=== PATIENT | male | born 1975 ===

== ENCOUNTER 2019-02-24 10:17 | Inpatient (IN) ==
[2019-02-24] MEDS ORDERED: VANCOMYCIN INJ 1,000 MG in SODIUM CHLORIDE 0.9% 250 ML IV STA (10:40)
[2019-02-24] MEDS ORDERED: ONDANSETRON 4 MG/2 ML VIAL ONE (10:43)
[2019-02-24] MEDS ORDERED: HYDROmorphone 2 MG/1 ML VIAL ONE (10:44)
[2019-02-24] MEDS ORDERED: HYDROmorphone 2 MG/1 ML VIAL IV STA (10:57)
[2019-02-24] MEDS ORDERED: ONDANSETRON 4 MG/2 ML VIAL IV STA (10:57)
[2019-02-24 11:07] LABS: Cholesterol Crystals None Seen /LPF
[2019-02-24 11:40] LABS: Lymphocytes,Synovial Fluid 12 %; Neutrophils,Synovial Fluid 88 %
[2019-02-24] MEDS ORDERED: INSULIN REGULAR 100 UNIT/ML ONE (13:33)
[2019-02-24] MEDS ORDERED: ceFAZolin 1,000 MG VIAL ONE (14:32)
[2019-02-24] MEDS ORDERED: LORATADINE 10 MG TABLET PO PRN (15:21)
[2019-02-24] MEDS ORDERED: GLUCAGON 1 MG VIAL IM PRN (15:27)
[2019-02-24] MEDS ORDERED: ONDANSETRON 4 MG/2 ML VIAL IV PRN (15:27)
[2019-02-24] MEDS ORDERED: DEXTROSE 10% 250 ML BAG IV PRN (15:27)
[2019-02-24] MEDS ORDERED: MAGNESIUM HYDROXIDE SUSP 30 ML UDCUP PO PRN (15:27)
[2019-02-24] MEDS ORDERED: PROPOFOL 200 MG/20 ML VIAL IV ONE (15:34)
[2019-02-24] MEDS ORDERED: fentaNYL 100 MCG/2 ML VIAL ONE (15:35)
[2019-02-24] MEDS ORDERED: LACTATED RINGERS 1,000 ML IV ONE (15:35)
[2019-02-24] MEDS ORDERED: MIDAZOLAM 2 MG/2 ML VIAL ONE (15:35)
[2019-02-24] MEDS ORDERED: SEVOFLURANE 1 UNIT/15 MINUTE INH ONE (15:35)
[2019-02-24 16:04] LABS: Basophils % 0.3 % (0.0-0.8); Eosinophils % 0.2 % (0.00-10.9); Hematocrit 30.1 VOL% (42.0-52.0); Hemoglobin 10.3 GM/DL (14.0-18.0); Immature Granulocytes % 1.3 %; Immature Granulocytes Absolute 0.11 #; Lymphocytes # 0.7 10*3/uL (1.4-4.0); Lymphocytes % 8.4 % (21.2-54.2); Mean Corpuscular HGB Conc 34.2 GM/DL (32-36); Mean Corpuscular Volume 83.4 FL (87-102); Mean Platelet Volume 9.5 FL (9.6-12.0); Monocytes % 6.7 % (1.7-12.7); Neutrophils % 83.1 % (38.7-73.9); Platelet Count 184 T/CUMM (130-400); Red Blood Count 3.61 MC/CUMM (3.8-5.5); Red Cell Distribution Width 13.2 % (9.3-17.3); White Blood Count 8.7 T/CUMM (4-12)
[2019-02-24 16:33] LABS: Risk Ratio 2.46; VLDL CHOLESTEROL 22.4 MG/DL
[2019-02-24 16:35] LABS: Albumin 2.2 G/DL (3.4-5.0); Bilirubin,Direct 0.56 MG/DL (0.0-0.20); Bilirubin,Indirect 0.5 MG/DL (0.0-1.0); Bilirubin,Total 1.1 MG/DL (0.2-1.0)
[2019-02-24 16:41] LABS: Calcium 7.8 MG/DL (8.5-10.1); Osmolality,Calculated 287.7 MOS/KG (273-304)
[2019-02-24] MEDS ORDERED: glyBURIDE 5 MG TABLET PO SCH (17:00)
[2019-02-24] MEDS: glyBURIDE/METFORMIN 5-500 MG TABLET PO SCH (18:24)
[2019-02-24] MEDS: INSULIN LISPRO 100 UNIT/ML SUBCUT SCH ×2 (18:24→21:27)
[2019-02-24] MEDS: glyBURIDE 5 MG TABLET PO SCH (18:24)
[2019-02-24] MEDS: SODIUM CHLORIDE 0.9% 1,000 ML IV SCH (18:35)
[2019-02-24] MEDS: PIPERACILLIN/TAZOBACTAM 3,375 MG in SODIUM CHLORIDE 0.9% 100 ML IV SCH (18:36)
[2019-02-24] MEDS ORDERED: INSULIN DETEMIR 100 UNIT/ML SUBCUT SCH (21:00)
[2019-02-24] MEDS ORDERED: INSULIN GLARGINE 100 UNIT/ML SUBCUT SCH (21:00)
[2019-02-24] MEDS: SIMVASTATIN 20 MG TABLET PO SCH (21:26)
[2019-02-24] MEDS ORDERED: ACETAMINOPHEN 1,000 MG/100 ML VIAL IV ONE (22:29)
[2019-02-24] MEDS: VANCOMYCIN INJ 1,250 MG in SODIUM CHLORIDE 0.9% 250 ML IV SCH (22:49)
[2019-02-25] MEDS: PIPERACILLIN/TAZOBACTAM 3,375 MG in SODIUM CHLORIDE 0.9% 100 ML IV SCH ×3 (02:54→18:30)
[2019-02-25] MEDS: MORPHINE 4 MG/1 ML VIAL IV PRN ×5 (03:12→23:45)
[2019-02-25 06:25] LABS: Basophils % 0.3 % (0.0-0.8); Eosinophils # 0.1 10*3/uL (0.0-0.87); Eosinophils % 0.8 % (0.00-10.9); Hematocrit 30.4 VOL% (42.0-52.0); Hemoglobin 10.6 GM/DL (14.0-18.0); Immature Granulocytes % 0.8 %; Immature Granulocytes Absolute 0.08 #; Lymphocytes # 1.3 10*3/uL (1.4-4.0); Lymphocytes % 13.5 % (21.2-54.2); Mean Corpuscular HGB Conc 34.9 GM/DL (32-36); Mean Corpuscular Volume 81.7 FL (87-102); Mean Platelet Volume 10.2 FL (9.6-12.0); Monocytes % 8.2 % (1.7-12.7); Neutrophils % 76.4 % (38.7-73.9); Platelet Count 208 T/CUMM (130-400); Red Blood Count 3.72 MC/CUMM (3.8-5.5); Red Cell Distribution Width 13.3 % (9.3-17.3); White Blood Count 9.7 T/CUMM (4-12)
[2019-02-25 06:38] LABS: Calcium 7.9 MG/DL (8.5-10.1); Osmolality,Calculated 282.8 MOS/KG (273-304)
[2019-02-25] MEDS: glyBURIDE/METFORMIN 5-500 MG TABLET PO SCH (08:45)
[2019-02-25] MEDS: LOSARTAN 25 MG TABLET PO SCH (08:45)
[2019-02-25] MEDS: glyBURIDE 5 MG TABLET PO SCH (08:45)
[2019-02-25] MEDS: INSULIN LISPRO 100 UNIT/ML SUBCUT SCH ×4 (08:45→20:36)
[2019-02-25] MEDS ORDERED: LOSARTAN 25 MG TABLET PO SCH ×2 (09:00)
[2019-02-25] MEDS ORDERED: ASPIRIN EC 81 MG TABLET PO SCH (09:00)
[2019-02-25] MEDS ORDERED: ERGOCALCIFEROL 50,000 UNIT CAPSULE PO SCH (09:00)
[2019-02-25] MEDS: VANCOMYCIN INJ 1,250 MG in SODIUM CHLORIDE 0.9% 250 ML IV SCH ×2 (10:00→23:43)
[2019-02-25] MEDS: metFORMIN 500 MG TABLET PO SCH ×2 (12:13→16:41)
[2019-02-25] MEDS ORDERED: MAGNESIUM SULF RIDER 2 GM in PREMIX 1 EACH IV PRN (12:21)
[2019-02-25] MEDS ORDERED: MAGNESIUM SULF RIDER 4 GM in PREMIX 1 EACH IV PRN (12:21)
[2019-02-25 16:35] LABS: Calcium 7.4 MG/DL (8.5-10.1); Osmolality,Calculated 277.1 MOS/KG (273-304)
[2019-02-25] MEDS: SODIUM CHLORIDE 0.9% 1,000 ML IV SCH (17:19)
[2019-02-25] MEDS: INSULIN GLARGINE 100 UNIT/ML SUBCUT SCH (20:36)
[2019-02-25] MEDS: SIMVASTATIN 20 MG TABLET PO SCH (20:37)
[2019-02-26] MEDS: PIPERACILLIN/TAZOBACTAM 3,375 MG in SODIUM CHLORIDE 0.9% 100 ML IV SCH (02:51)
[2019-02-26] MEDS: MORPHINE 4 MG/1 ML VIAL IV PRN (06:44)
[2019-02-26] MEDS: metFORMIN 500 MG TABLET PO SCH ×2 (08:59→16:20)
[2019-02-26] MEDS: LOSARTAN 25 MG TABLET PO SCH (09:00)
[2019-02-26] MEDS: ASPIRIN EC 325 MG TABLET PO SCH (09:00)
[2019-02-26] MEDS: INSULIN LISPRO 100 UNIT/ML SUBCUT SCH ×6 (09:00→21:04)
[2019-02-26] MEDS: VANCOMYCIN INJ 1,250 MG in SODIUM CHLORIDE 0.9% 250 ML IV SCH ×2 (12:27→21:08)
[2019-02-26] MEDS: SODIUM CHLORIDE 0.9% 1,000 ML IV SCH ×2 (17:30→18:36)
[2019-02-26] MEDS: INSULIN GLARGINE 100 UNIT/ML SUBCUT SCH (21:03)
[2019-02-26] MEDS: SIMVASTATIN 20 MG TABLET PO SCH (21:04)
[2019-02-27] MEDS: SODIUM CHLORIDE 0.9% 1,000 ML IV SCH ×4 (03:29→21:02)
[2019-02-27 06:26] LABS: Calcium 7.9 MG/DL (8.5-10.1); Osmolality,Calculated 283.5 MOS/KG (273-304)
[2019-02-27] MEDS: VANCOMYCIN INJ 1,250 MG in SODIUM CHLORIDE 0.9% 250 ML IV SCH ×3 (07:11→20:37)
[2019-02-27] MEDS: ASPIRIN EC 325 MG TABLET PO SCH (09:05)
[2019-02-27] MEDS: metFORMIN 500 MG TABLET PO SCH (09:05)
[2019-02-27] MEDS: LOSARTAN 25 MG TABLET PO SCH (09:05)
[2019-02-27] MEDS: INSULIN LISPRO 100 UNIT/ML SUBCUT SCH ×7 (09:06→20:37)
[2019-02-27] MEDS: POTASSIUM CHLORIDE 20 MEQ TABLET PO PRN ×3 (14:00→18:43)
[2019-02-27] MEDS: metFORMIN 850 MG TABLET PO SCH (20:36)
[2019-02-27] MEDS: INSULIN GLARGINE 100 UNIT/ML SUBCUT SCH (20:37)
[2019-02-27] MEDS: SIMVASTATIN 20 MG TABLET PO SCH (20:37)
[2019-02-27] MEDS: MORPHINE 4 MG/1 ML VIAL IV PRN (21:02)
[2019-02-28] MEDS: SODIUM CHLORIDE 0.9% 1,000 ML IV SCH ×3 (00:37→19:28)
[2019-02-28 00:52] LABS: Basophils % 0.4 % (0.0-0.8); Eosinophils # 0.2 10*3/uL (0.0-0.87); Hematocrit 26.1 VOL% (42.0-52.0); Hemoglobin 8.8 GM/DL (14.0-18.0); Immature Granulocytes % 1.2 %; Lymphocytes # 1.3 10*3/uL (1.4-4.0); Lymphocytes % 16.6 % (21.2-54.2); Mean Corpuscular HGB Conc 33.7 GM/DL (32-36); Mean Corpuscular Volume 83.1 FL (87-102); Mean Platelet Volume 9.1 FL (9.6-12.0); Monocytes % 10.5 % (1.7-12.7); Neutrophils % 68.3 % (38.7-73.9); Platelet Count 250 T/CUMM (130-400); Red Blood Count 3.14 MC/CUMM (3.8-5.5); Red Cell Distribution Width 13.2 % (9.3-17.3); White Blood Count 8.1 T/CUMM (4-12)
[2019-02-28] MEDS: POTASSIUM CHLORIDE 20 MEQ TABLET PO PRN (04:45)
[2019-02-28] MEDS: VANCOMYCIN INJ 1,250 MG in SODIUM CHLORIDE 0.9% 250 ML IV SCH ×3 (04:48→21:13)
[2019-02-28] MEDS: INSULIN LISPRO 100 UNIT/ML SUBCUT SCH ×7 (07:54→21:29)
[2019-02-28] MEDS: ASPIRIN EC 325 MG TABLET PO SCH (08:47)
[2019-02-28] MEDS: metFORMIN 850 MG TABLET PO SCH ×2 (08:47→17:34)
[2019-02-28] MEDS: LOSARTAN 25 MG TABLET PO SCH (08:47)
[2019-02-28] MEDS ORDERED: INSULIN GLARGINE 100 UNIT/ML SUBCUT SCH (21:00)
[2019-02-28] MEDS: SIMVASTATIN 20 MG TABLET PO SCH (21:13)
[2019-03-01 04:16] LABS: Calcium 8.7 MG/DL (8.5-10.1); Osmolality,Calculated 280.4 MOS/KG (273-304)
[2019-03-01] MEDS: VANCOMYCIN INJ 1,250 MG in SODIUM CHLORIDE 0.9% 250 ML IV SCH (05:46)
[2019-03-01] MEDS: INSULIN LISPRO 100 UNIT/ML SUBCUT SCH ×4 (07:57→12:19)
[2019-03-01] MEDS: metFORMIN 850 MG TABLET PO SCH (08:38)
[2019-03-01] MEDS: LOSARTAN 25 MG TABLET PO SCH (08:38)
[2019-03-01] MEDS: ASPIRIN EC 325 MG TABLET PO SCH (08:38)
[2019-03-01 10:58] VITALS: BP 136/74
[2019-04-15] MEDS ORDERED: SIMVASTATIN 20 MG TABLET PO SCH (21:00)
== END 2019-03-01 16:06 | disposition home or self-care (01) | DRG 854 ==
LOC: EDUNIT# → EDBD → N.ED 10:17 → N.3E 15:28
PROVIDERS: ADMIT Orthopaedic Surgery; ATTEND Orthopaedic Surgery

== ENCOUNTER 2019-04-08 15:59 | Inpatient (IN) ==
[2019-04-08] MEDS ORDERED: GLUCAGON 1 MG VIAL IM PRN (18:51)
[2019-04-08] MEDS ORDERED: ONDANSETRON 4 MG/2 ML VIAL IV PRN (18:51)
[2019-04-08] MEDS ORDERED: DEXTROSE 50% 25 GM/50 ML VIAL IV PRN (18:51)
[2019-04-08] MEDS ORDERED: ACETAMINOPHEN 325 MG TABLET PO PRN (18:51)
[2019-04-08] MEDS ORDERED: SIMVASTATIN 20 MG TABLET PO SCH (21:00)
[2019-04-08] MEDS: INSULIN LISPRO 100 UNIT/ML SUBCUT SCH (21:52)
[2019-04-08] MEDS: ENOXAPARIN 40 MG/0.4 ML SYRINGE SUBCUT SCH (21:53)
[2019-04-08] MEDS: PIPERACILLIN/TAZOBACTAM 3,375 MG in SODIUM CHLORIDE 0.9% 100 ML IV SCH (21:53)
[2019-04-09 01:16] LABS: Basophils # 0.1 10*3/uL (0.0-0.2); Basophils % 0.4 % (0.0-0.8); Eosinophils # 0.2 10*3/uL (0.0-0.87); Eosinophils % 1.8 % (0.00-10.9); Hematocrit 30.8 VOL% (42.0-52.0); Hemoglobin 10.5 GM/DL (14.0-18.0); Immature Granulocytes % 1.7 %; Immature Granulocytes Absolute 0.19 #; Lymphocytes # 1.7 10*3/uL (1.4-4.0); Lymphocytes % 15.6 % (21.2-54.2); Mean Corpuscular HGB Conc 34.1 GM/DL (32-36); Mean Platelet Volume 9.6 FL (9.6-12.0); Monocytes % 6.1 % (1.7-12.7); Neutrophils % 74.4 % (38.7-73.9); Platelet Count 305 T/CUMM (130-400); Red Blood Count 3.85 MC/CUMM (3.8-5.5); Red Cell Distribution Width 15.1 % (9.3-17.3); White Blood Count 11.1 T/CUMM (4-12)
[2019-04-09 01:57] LABS: Albumin 2.4 G/DL (3.4-5.0); Bilirubin,Total 0.7 MG/DL (0.2-1.0); Calcium 8.9 MG/DL (8.5-10.1); Osmolality,Calculated 276.5 MOS/KG (273-304); Risk Ratio 5.7; Thyroid Stimulating Hormone 2.56 uIU/ml (0.358-3.74); VLDL CHOLESTEROL 52.8 MG/DL
[2019-04-09] MEDS: PIPERACILLIN/TAZOBACTAM 3,375 MG in SODIUM CHLORIDE 0.9% 100 ML IV SCH ×2 (04:53→12:23)
[2019-04-09] MEDS: PANTOPRAZOLE 40 MG TABLET PO SCH (08:58)
[2019-04-09] MEDS: ASPIRIN EC 81 MG TABLET PO SCH (08:58)
[2019-04-09] MEDS: LOSARTAN 25 MG TABLET PO SCH (08:58)
[2019-04-09] MEDS: INSULIN LISPRO 100 UNIT/ML SUBCUT SCH ×4 (08:58→22:03)
[2019-04-09] MEDS: VANCOMYCIN INJ 1,500 MG in SODIUM CHLORIDE 0.9% 500 ML IV SCH (21:47)
[2019-04-09] MEDS: ENOXAPARIN 40 MG/0.4 ML SYRINGE SUBCUT SCH (21:50)
[2019-04-09] MEDS: SIMVASTATIN 40 MG TABLET PO SCH (21:50)
[2019-04-10 04:57] LABS: Basophils # 0.1 10*3/uL (0.0-0.2); Basophils % 0.5 % (0.0-0.8); Eosinophils # 0.3 10*3/uL (0.0-0.87); Hematocrit 30.9 VOL% (42.0-52.0); Hemoglobin 10.1 GM/DL (14.0-18.0); Immature Granulocytes % 2.4 %; Immature Granulocytes Absolute 0.23 #; Lymphocytes # 1.2 10*3/uL (1.4-4.0); Lymphocytes % 13.1 % (21.2-54.2); Mean Corpuscular HGB Conc 32.7 GM/DL (32-36); Mean Corpuscular Volume 80.5 FL (87-102); Mean Platelet Volume 9.2 FL (9.6-12.0); Monocytes % 6.9 % (1.7-12.7); Neutrophils % 74.1 % (38.7-73.9); Platelet Count 283 T/CUMM (130-400); Red Blood Count 3.84 MC/CUMM (3.8-5.5); Red Cell Distribution Width 15.6 % (9.3-17.3); White Blood Count 9.4 T/CUMM (4-12)
[2019-04-10 05:25] LABS: Calcium 8.8 MG/DL (8.5-10.1); Osmolality,Calculated 282.1 MOS/KG (273-304)
[2019-04-10] MEDS: VANCOMYCIN INJ 1,500 MG in SODIUM CHLORIDE 0.9% 500 ML IV SCH ×2 (06:24→18:26)
[2019-04-10] MEDS ORDERED: MAGNESIUM SULF RIDER 2 GM in PREMIX 1 EACH IV ONE (08:28)
[2019-04-10] MEDS: INSULIN LISPRO 100 UNIT/ML SUBCUT SCH ×6 (09:48→21:24)
[2019-04-10] MEDS: PANTOPRAZOLE 40 MG TABLET PO SCH (09:50)
[2019-04-10] MEDS: LOSARTAN 25 MG TABLET PO SCH (09:50)
[2019-04-10] MEDS: ASPIRIN EC 81 MG TABLET PO SCH (09:51)
[2019-04-10] MEDS ORDERED: DEXTROSE 50% 25 GM/50 ML VIAL IV PRN (09:55)
[2019-04-10] MEDS ORDERED: GLUCAGON 1 MG VIAL IM PRN (09:55)
[2019-04-10 18:36] LABS: TB2 Ag Minus Result 0 IU/mL
[2019-04-10] MEDS: INSULIN GLARGINE 100 UNIT/ML SUBCUT SCH (21:21)
[2019-04-10] MEDS: SIMVASTATIN 40 MG TABLET PO SCH (21:21)
[2019-04-10] MEDS: ENOXAPARIN 40 MG/0.4 ML SYRINGE SUBCUT SCH (21:22)
[2019-04-11 05:41] LABS: Hematocrit 29.1 VOL% (42.0-52.0); Hemoglobin 9.6 GM/DL (14.0-18.0); Mean Corpuscular Volume 81.3 FL (87-102); Red Blood Count 3.58 MC/CUMM (3.8-5.5); White Blood Count 7.2 T/CUMM (4-12)
[2019-04-11 05:42] LABS: Basophils % 0.6 % (0.0-0.8); Eosinophils # 0.4 10*3/uL (0.0-0.87); Eosinophils % 5.2 % (0.00-10.9); Immature Granulocytes % 2.2 %; Immature Granulocytes Absolute 0.16 #; Lymphocytes # 1.4 10*3/uL (1.4-4.0); Lymphocytes % 19.3 % (21.2-54.2); Mean Platelet Volume 10.3 FL (9.6-12.0); Monocytes % 6.6 % (1.7-12.7); Neutrophils % 66.1 % (38.7-73.9); Platelet Count 325 T/CUMM (130-400); Red Cell Distribution Width 15.6 % (9.3-17.3)
[2019-04-11] MEDS ORDERED: SODIUM CHLORIDE 0.9% 1,000 ML IV SCH (06:00)
[2019-04-11 06:12] LABS: Calcium 8.6 MG/DL (8.5-10.1); Osmolality,Calculated 285.4 MOS/KG (273-304)
[2019-04-11] MEDS: VANCOMYCIN INJ 1,500 MG in SODIUM CHLORIDE 0.9% 500 ML IV SCH ×2 (06:24→18:33)
[2019-04-11] MEDS: ASPIRIN EC 81 MG TABLET PO SCH (08:44)
[2019-04-11] MEDS: PANTOPRAZOLE 40 MG TABLET PO SCH (08:44)
[2019-04-11] MEDS: LOSARTAN 25 MG TABLET PO SCH (08:44)
[2019-04-11] MEDS: INSULIN LISPRO 100 UNIT/ML SUBCUT SCH ×7 (08:44→21:17)
[2019-04-11] MEDS ORDERED: ONDANSETRON 4 MG/2 ML VIAL ONE (12:43)
[2019-04-11] MEDS ORDERED: PROPOFOL 200 MG/20 ML VIAL IV ONE ×2 (12:43→15:19)
[2019-04-11] MEDS ORDERED: PHENYLEPHRINE 1 MG/10 ML SYRINGE IV ONE (12:43)
[2019-04-11] MEDS: ENOXAPARIN 40 MG/0.4 ML SYRINGE SUBCUT SCH (21:16)
[2019-04-11] MEDS: INSULIN GLARGINE 100 UNIT/ML SUBCUT SCH (21:16)
[2019-04-11] MEDS: SIMVASTATIN 40 MG TABLET PO SCH (21:16)
[2019-04-12 06:26] LABS: Calcium 8.9 MG/DL (8.5-10.1); Osmolality,Calculated 286.1 MOS/KG (273-304)
[2019-04-12] MEDS: VANCOMYCIN INJ 1,500 MG in SODIUM CHLORIDE 0.9% 500 ML IV SCH (06:29)
[2019-04-12] MEDS ORDERED: ERGOCALCIFEROL 50,000 UNIT CAPSULE PO SCH (09:00)
[2019-04-12] MEDS: ASPIRIN EC 81 MG TABLET PO SCH (09:04)
[2019-04-12] MEDS: LOSARTAN 25 MG TABLET PO SCH (09:04)
[2019-04-12] MEDS: PANTOPRAZOLE 40 MG TABLET PO SCH (09:05)
[2019-04-12] MEDS: INSULIN LISPRO 100 UNIT/ML SUBCUT SCH ×4 (09:06→11:38)
[2019-04-12 11:21] VITALS: BP 161/90
== END 2019-04-12 12:15 | disposition home or self-care (01) | DRG 176 ==
LOC: N.TELEN → SUATTDRO 17:34
PROVIDERS: ADMIT Family Medicine; ATTEND Internal Medicine